=== PATIENT | female | born 1945 | race Caucasian/White ===

== ENCOUNTER 2021-03-31 18:32 | Inpatient (IN) ==
[2021-03-31] MEDS ORDERED: 0.9 % Sodium Chloride 1,000 ML IVC ONE (18:37)
[2021-03-31] MEDS ORDERED: Ondansetron 4 MG/2 ML VIAL IVP ONE (18:38)
[2021-03-31] MEDS ORDERED: *HR* FentaNYL (PF) 100 MCG/2 ML VIAL IVP ONE (18:46)
[2021-03-31] MEDS ORDERED: Albumin 25% 25gram/100mL 25 GM/100 ML IV.SOLN IVPB ONE (18:47)
[2021-03-31] MEDS ORDERED: 0.9 % Sodium Chloride 500 ML IVC ONE ×2 (18:47→19:48)
[2021-03-31 19:06] LABS: Basophils % 0.2 %; Eosinophils % 0.4 %; Immature Granulocytes % 0.8 % (0-4); Lymphocytes # 1.3 K/mcL (0.6-4.6); Lymphocytes % 15.2 %; Mean Corpuscular HGB Conc 33.3 g/dL (31.6-35.5); Mean Corpuscular Hemoglobin 28.8 pg (28.0-33.3); Mean Corpuscular Volume 86.4 fL (83.0-100.0); Mean Platelet Volume 9.4 fL (9.4-12.4); Monocytes # 0.5 K/mcL (0.0-1.3); Monocytes % 6.4 %; Neutrophils # 6.5 K/mcL (1.6-8.9); Platelet Count 347 K/mcL (140-400); Red Cell Distribution Width 18.4 % (11.5-14.5); White Blood Count 8.4 K/mcL (4.3-11.1)
[2021-03-31] MEDS ORDERED: Isovue-370 500 ML BOTTLE IVP ONE (19:09)
[2021-03-31 19:29] LABS: Albumin 3.7 g/dL (3.5-5.7); Albumin/Globulin Ratio 1.1 (1.1-2.2); Bilirubin,Direct 0.7 mg/dL (0.0-0.2); Bilirubin,Indirect 1.4 mg/dL (0.0-1.0); Bilirubin,Total 2.1 mg/dL (0.3-1.0); Calcium 10.7 mg/dL (8.6-10.3); Globulin 3.3 g/dL (2.4-3.5); Potassium 3.9 mEq/L (3.5-5.1); Troponin I 0.03 ng/mL (< 0.04)
[2021-03-31] MEDS: 0.9 % Sodium Chloride 1,000 ML IVC SCH (20:31)
[2021-03-31 20:57] LABS: Bacteria,Urine Few per hpf (None-Few); Bilirubin,Urine Small (Negative); Blood,Urine Negative (Negative); Clarity,Urine Turbid (Clear); Color,Urine Dark-Yellow (Yellow); Glucose,Urine (UA) Normal (Normal); Hyaline Casts,Urine Few per lpf (None Seen); Ketones,Urine Negative (Negative); Leukocyte Esterase,Urine Negative (Negative); Mucus,Urine Few per lpf (None-Few); Nitrite,Urine Negative (Negative); Protein,Urine 50 mg/dL (Neg-Trace); RBC,Urine 0-3 per hpf (0-3); Specific Gravity,Urine 1.022 (1.010-1.025); Squamous Epithelial Cell,Urine Few per hpf (None-Few)
[2021-03-31] MEDS ORDERED: cefTRIAXone 1,000 MG in Water for inj. (sterile) 10 ML IVP ONE (22:09)
[2021-03-31 22:58] LABS: INR 2.3; Prothrombin Time 26.3 Seconds (9.4-12.1)
[2021-03-31 23:01] LABS: Activated Partial Thrombo Time 30.8 Seconds (26.0-36.0)
[2021-04-01] MEDS ORDERED: Ondansetron 4 MG/2 ML VIAL IVP PRN ×2 (00:09→00:17)
[2021-04-01] MEDS ORDERED: Naloxone 0.4 MG/ML INJ IVP PRN (00:17)
[2021-04-01] MEDS ORDERED: *HR* Metoprolol 5 MG/5 ML VIAL IVP PRN (01:03)
[2021-04-01 05:06] LABS: Hematocrit 45.4 % (35.3-44.9); Hemoglobin 14.6 g/dL (11.5-15.4); Mean Corpuscular HGB Conc 32.2 g/dL (31.6-35.5); Mean Corpuscular Hemoglobin 29.4 pg (28.0-33.3); Mean Corpuscular Volume 91.5 fL (83.0-100.0); Mean Platelet Volume 9.5 fL (9.4-12.4); Platelet Count 234 K/mcL (140-400); Red Blood Count 4.96 M/mcL (3.82-4.97)
[2021-04-01 05:14] LABS: INR 2.3; Prothrombin Time 26.1 Seconds (9.4-12.1)
[2021-04-01 05:17] LABS: Activated Partial Thrombo Time 29.6 Seconds (26.0-36.0)
[2021-04-01 05:22] LABS: Albumin 3.2 g/dL (3.5-5.7); Albumin/Globulin Ratio 1.2 (1.1-2.2); Bilirubin,Total 1.4 mg/dL (0.3-1.0); Calcium 9.2 mg/dL (8.6-10.3); Globulin 2.6 g/dL (2.4-3.5); Magnesium 1.9 mg/dL (1.6-2.6); Potassium 3.6 mEq/L (3.5-5.1); Total Protein 5.8 g/dL (6.4-8.9)
[2021-04-01] MEDS: 0.9 % Sodium Chloride 1,000 ML IVC SCH (06:57)
[2021-04-01] MEDS: Piperacillin/Tazobactam 3.375 GM in 0.9 % Sodium Chloride Mini Bag 100 ML IVPB SCH ×2 (08:17→20:56)
[2021-04-01] MEDS ORDERED: Albumin 25% 25gram/100mL 25 GM/100 ML IV.SOLN IVPB ONE (12:39)
[2021-04-01] MEDS ORDERED: Perflutren Lipid Microsphere 1.3 ML in 0.9 % Sodium Chloride 8.7 ML IVP PRN (13:28)
[2021-04-01 18:12] LABS: Bilirubin,Urine Negative (Negative); Blood,Urine Moderate (Negative); Clarity,Urine Turbid (Clear); Color,Urine Yellow (Yellow); Glucose,Urine (UA) Normal (Normal); Hyaline Casts,Urine Many per lpf (None Seen); Ketones,Urine Negative (Negative); Leukocyte Esterase,Urine Moderate (Negative); Mucus,Urine Few per lpf (None-Few); Nitrite,Urine Negative (Negative); PH,Urine 5.5 pH Units (5.0-8.0); Protein,Urine 30 mg/dL (Neg-Trace); RBC,Urine 30-50 per hpf (0-3); Specific Gravity,Urine 1.023 (1.010-1.025); Squamous Epithelial Cell,Urine Few per hpf (None-Few); Uric Acid Crystals,Urine Present per hpf; Urobilinogen,Urine Normal (Normal); WBC,Urine 15-30 per hpf (0-3)
[2021-04-01 18:32] LABS: Creatinine,Urine 229 mg/dL; Sodium, Urine < 10.0 mEq/L
[2021-04-01] MEDS ORDERED: Albumin 25% 25gram/100mL 25 GM/100 ML IV.SOLN IVPB SCH (21:00)
[2021-04-02 05:30] LABS: Basophils % 0.4 %; Eosinophils # 0.1 K/mcL (0.0-0.6); Eosinophils % 1.2 %; Hematocrit 43.4 % (35.3-44.9); Hemoglobin 14.1 g/dL (11.5-15.4); Immature Granulocytes % 0.4 % (0-4); Lymphocytes # 0.9 K/mcL (0.6-4.6); Lymphocytes % 13.3 %; Mean Corpuscular HGB Conc 32.5 g/dL (31.6-35.5); Mean Corpuscular Hemoglobin 29.1 pg (28.0-33.3); Mean Corpuscular Volume 89.7 fL (83.0-100.0); Mean Platelet Volume 9.1 fL (9.4-12.4); Monocytes # 0.7 K/mcL (0.0-1.3); Monocytes % 10.3 %; Platelet Count 223 K/mcL (140-400); Red Blood Count 4.84 M/mcL (3.82-4.97); Red Cell Distribution Width 18.5 % (11.5-14.5); Segmented Neutrophils % 74.4 %; White Blood Count 6.7 K/mcL (4.3-11.1)
[2021-04-02] MEDS: Albumin 25% 25gram/100mL 25 GM/100 ML IV.SOLN IVPB SCH ×3 (05:35→21:37)
[2021-04-02 05:42] LABS: INR 1.7; Prothrombin Time 19.1 Seconds (9.4-12.1)
[2021-04-02 05:45] LABS: Albumin 4.1 g/dL (3.5-5.7); Albumin/Globulin Ratio 1.6 (1.1-2.2); Bilirubin,Direct 0.8 mg/dL (0.0-0.2); Bilirubin,Indirect 1.3 mg/dL (0.0-1.0); Bilirubin,Total 2.1 mg/dL (0.3-1.0); Calcium 10.1 mg/dL (8.6-10.3); Globulin 2.5 g/dL (2.4-3.5); Magnesium 2.2 mg/dL (1.6-2.6); Potassium 3.3 mEq/L (3.5-5.1); Total Protein 6.6 g/dL (6.4-8.9)
[2021-04-02 05:46] LABS: Uric Acid 13.2 mg/dL (2.3-7.6)
[2021-04-02 06:41] LABS: Hepatitis B Surface Antigen Nonreactive (Nonreactive)
[2021-04-02 07:09] LABS: Hepatitis C Virus Antibody Nonreactive (Nonreactive)
[2021-04-02 07:10] LABS: Hepatitis C Virus Antibody Nonreactive (Nonreactive)
[2021-04-02 07:11] LABS: Hepatitis A Antibody IgM Nonreactive (Nonreactive); Hepatitis B Core IgM Nonreactive (Nonreactive)
[2021-04-02] MEDS: Cholecalciferol (D-3) 1,000 UNIT (25MCG) TABLET PO SCH (09:42)
[2021-04-02] MEDS: Piperacillin/Tazobactam 3.375 GM in 0.9 % Sodium Chloride Mini Bag 100 ML IVPB SCH (09:42)
[2021-04-02] MEDS ORDERED: Piperacillin/Tazobactam 3.375 GM in 0.9 % Sodium Chloride Mini Bag 100 ML IVPB SCH (18:00)
[2021-04-03] MEDS: Albumin 25% 25gram/100mL 25 GM/100 ML IV.SOLN IVPB SCH ×2 (05:01→13:56)
[2021-04-03] MEDS ORDERED: Piperacillin/Tazobactam 3.375 GM in 0.9 % Sodium Chloride Mini Bag 100 ML IVPB SCH (06:00)
[2021-04-03 06:12] LABS: Basophils % 0.5 %; Eosinophils # 0.2 K/mcL (0.0-0.6); Eosinophils % 2.9 %; Hematocrit 40.7 % (35.3-44.9); Hemoglobin 13.9 g/dL (11.5-15.4); Immature Granulocytes % 0.7 % (0-4); Lymphocytes # 0.7 K/mcL (0.6-4.6); Lymphocytes % 11.9 %; Mean Corpuscular HGB Conc 34.2 g/dL (31.6-35.5); Mean Corpuscular Hemoglobin 29.9 pg (28.0-33.3); Mean Corpuscular Volume 87.5 fL (83.0-100.0); Mean Platelet Volume 9.1 fL (9.4-12.4); Monocytes # 0.7 K/mcL (0.0-1.3); Monocytes % 11.2 %; Neutrophils # 4.3 K/mcL (1.6-8.9); Platelet Count 196 K/mcL (140-400); Red Blood Count 4.65 M/mcL (3.82-4.97); Red Cell Distribution Width 17.7 % (11.5-14.5); Segmented Neutrophils % 72.8 %
[2021-04-03 06:18] LABS: INR 1.5; Prothrombin Time 16.9 Seconds (9.4-12.1)
[2021-04-03 06:35] LABS: Albumin/Globulin Ratio 2.4 (1.1-2.2); Bilirubin,Indirect 1.3 mg/dL (0.0-1.0); Bilirubin,Total 2.3 mg/dL (0.3-1.0); Calcium 9.7 mg/dL (8.6-10.3); Globulin 1.7 g/dL (2.4-3.5); Magnesium 1.8 mg/dL (1.6-2.6); Potassium 3.2 mEq/L (3.5-5.1); Total Protein 5.7 g/dL (6.4-8.9)
[2021-04-03] MEDS: Cholecalciferol (D-3) 1,000 UNIT (25MCG) TABLET PO SCH (08:28)
[2021-04-03 12:54] VITALS: BP 99/66
[2021-04-04 18:19] LABS: Appearance of Body Fluid Cloudy (Clear); Source of Body Fluid ascites- add on flui
[2021-04-04 18:20] LABS: Volume of Body Fluid 60 mL
[2021-04-05 04:56] LABS: Fluid Source for Albumin PERITONEAL FL.
== END 2021-04-03 16:11 | disposition home or self-care (01) | DRG 432 ==
LOC: 3ANU 18:32 → EMEROOARM 18:32 → SUATTDRO 22:13 → 3ANU 22:51
PROVIDERS: ADMIT Student in an Organized Health Care Education/Training Program; ATTEND Pharmacist

== ENCOUNTER 2021-04-12 11:22 | Inpatient (IN) ==
[2021-04-12 12:30] LABS: Basophils % 0.3 %; Eosinophils % 0.3 %; Hematocrit 49.2 % (35.3-44.9); Immature Granulocytes % 0.7 % (0-4); Lymphocytes # 1.2 K/mcL (0.6-4.6); Lymphocytes % 11.1 %; Mean Corpuscular HGB Conc 34.6 g/dL (31.6-35.5); Mean Corpuscular Volume 86.8 fL (83.0-100.0); Mean Platelet Volume 9.6 fL (9.4-12.4); Monocytes # 0.7 K/mcL (0.0-1.3); Monocytes % 6.3 %; Neutrophils # 8.4 K/mcL (1.6-8.9); Platelet Count 362 K/mcL (140-400); Red Blood Count 5.67 M/mcL (3.82-4.97); Red Cell Distribution Width 19.1 % (11.5-14.5); Segmented Neutrophils % 81.3 %; White Blood Count 10.3 K/mcL (4.3-11.1)
[2021-04-12 12:56] LABS: INR 1.4; Prothrombin Time 15.6 Seconds (9.4-12.1)
[2021-04-12 13:08] LABS: VBG Ionized Calcium 1.19 mmol/L (1.15-1.35)
[2021-04-12 13:08] LABS: Bacteria,Urine Few per hpf (None-Few); Bilirubin,Urine Small (Negative); Blood,Urine Negative (Negative); Clarity,Urine Turbid (Clear); Color,Urine Yellow (Yellow); Glucose,Urine (UA) Normal (Normal); Hyaline Casts,Urine Many per lpf (None Seen); Ketones,Urine Trace mg/dL (Negative); Leukocyte Esterase,Urine Negative (Negative); Mucus,Urine Few per lpf (None-Few); Nitrite,Urine Negative (Negative); PH,Urine 5.5 pH Units (5.0-8.0); Protein,Urine 50 mg/dL (Neg-Trace); RBC,Urine 0-3 per hpf (0-3); Specific Gravity,Urine 1.025 (1.010-1.025); Squamous Epithelial Cell,Urine Few per hpf (None-Few)
[2021-04-12 13:11] LABS: Thyroid Stimulating Hormone 10.381 mcIU/mL (0.340-5.600); Troponin I 0.13 ng/mL (< 0.04)
[2021-04-12] MEDS ORDERED: 0.9 % Sodium Chloride 500 ML IVC ONE (13:13)
[2021-04-12] MEDS ORDERED: Aspirin 81 MG TAB.CHEW PO ONE (13:15)
[2021-04-12 13:28] LABS: Albumin 3.6 g/dL (3.5-5.7); Albumin/Globulin Ratio 1.4 (1.1-2.2); Bilirubin,Direct 0.7 mg/dL (0.0-0.2); Bilirubin,Total 1.7 mg/dL (0.3-1.0); Globulin 2.6 g/dL (2.4-3.5); Magnesium 2.2 mg/dL (1.6-2.6); Potassium 3.6 mEq/L (3.5-5.1); Total Protein 6.2 g/dL (6.4-8.9)
[2021-04-12] MEDS ORDERED: Morphine Sulfate 2 MG/ML SYRINGE IVP STA (13:53)
[2021-04-12] MEDS ORDERED: Aspirin 81 MG TAB.CHEW ONE (14:00)
[2021-04-12] MEDS ORDERED: Ondansetron 4 MG/2 ML VIAL IVP STA (14:07)
[2021-04-12] MEDS ORDERED: Naloxone 0.4 MG/ML INJ IVP PRN (16:04)
[2021-04-12] MEDS ORDERED: Ondansetron 4 MG/2 ML VIAL IVP PRN (16:04)
[2021-04-12] MEDS ORDERED: Albumin 25% 25gram/100mL 25 GM/100 ML IV.SOLN IVPB ONE (16:09)
[2021-04-13 05:21] LABS: Basophils % 0.2 %; Eosinophils # 0.1 K/mcL (0.0-0.6); Eosinophils % 0.5 %; Hematocrit 45.2 % (35.3-44.9); Immature Granulocytes % 0.4 % (0-4); Lymphocytes # 1.4 K/mcL (0.6-4.6); Lymphocytes % 14.1 %; Mean Corpuscular HGB Conc 33.2 g/dL (31.6-35.5); Mean Corpuscular Hemoglobin 29.2 pg (28.0-33.3); Mean Corpuscular Volume 87.9 fL (83.0-100.0); Mean Platelet Volume 9.6 fL (9.4-12.4); Monocytes # 0.8 K/mcL (0.0-1.3); Monocytes % 8.7 %; Neutrophils # 7.4 K/mcL (1.6-8.9); Platelet Count 320 K/mcL (140-400); Red Blood Count 5.14 M/mcL (3.82-4.97); Red Cell Distribution Width 18.4 % (11.5-14.5); Segmented Neutrophils % 76.1 %; White Blood Count 9.7 K/mcL (4.3-11.1)
[2021-04-13 05:37] LABS: Calcium 10.5 mg/dL (8.6-10.3); Magnesium 2.2 mg/dL (1.6-2.6); Potassium 3.4 mEq/L (3.5-5.1)
[2021-04-13] MEDS: Megestrol Acetate 400 MG/10 ML UDC PO SCH (07:19)
[2021-04-13] MEDS: Cholecalciferol (D-3) 1,000 UNIT (25MCG) TABLET PO SCH (07:20)
[2021-04-13] MEDS: Albumin 25% 25gram/100mL 25 GM/100 ML IV.SOLN IVPB SCH ×2 (16:19→23:45)
[2021-04-13 16:20] LABS: Appearance of Peritoneal Fl HAZY (Clear); RBC,Peritoneal Fluid < 2000 RBC/mcL
[2021-04-14 06:48] LABS: Hematocrit 41.9 % (35.3-44.9); Hemoglobin 14.2 g/dL (11.5-15.4); Mean Corpuscular HGB Conc 33.9 g/dL (31.6-35.5); Mean Corpuscular Hemoglobin 29.5 pg (28.0-33.3); Mean Corpuscular Volume 86.9 fL (83.0-100.0); Mean Platelet Volume 9.3 fL (9.4-12.4); Platelet Count 273 K/mcL (140-400); Red Blood Count 4.82 M/mcL (3.82-4.97); Red Cell Distribution Width 17.5 % (11.5-14.5); White Blood Count 9.4 K/mcL (4.3-11.1)
[2021-04-14 07:10] LABS: Calcium 10.2 mg/dL (8.6-10.3); Potassium 3.2 mEq/L (3.5-5.1)
[2021-04-14] MEDS: Cholecalciferol (D-3) 1,000 UNIT (25MCG) TABLET PO SCH (09:07)
[2021-04-14] MEDS: Megestrol Acetate 400 MG/10 ML UDC PO SCH (09:07)
[2021-04-14] MEDS: Albumin 25% 25gram/100mL 25 GM/100 ML IV.SOLN IVPB SCH (09:08)
[2021-04-14] MEDS ORDERED: Lactulose Oral Soln 20 GM/30 ML UDC PO PRN (11:52)
[2021-04-14] MEDS: Albumin 25% 25gram/100mL 25 GM/100 ML IV.SOLN IVC SCH ×2 (12:36→16:30)
[2021-04-14] MEDS: Apixaban 5 MG TABLET PO SCH (20:12)
[2021-04-15 03:30] LABS: Hematocrit 39.5 % (35.3-44.9); Hemoglobin 13.6 g/dL (11.5-15.4); Mean Corpuscular HGB Conc 34.4 g/dL (31.6-35.5); Mean Corpuscular Hemoglobin 29.6 pg (28.0-33.3); Mean Corpuscular Volume 85.9 fL (83.0-100.0); Mean Platelet Volume 9.3 fL (9.4-12.4); Platelet Count 240 K/mcL (140-400); Red Cell Distribution Width 17.3 % (11.5-14.5)
[2021-04-15 03:56] LABS: Calcium 8.5 mg/dL (8.6-10.3)
[2021-04-15] MEDS: Megestrol Acetate 400 MG/10 ML UDC PO SCH (07:46)
[2021-04-15] MEDS: Cholecalciferol (D-3) 1,000 UNIT (25MCG) TABLET PO SCH (07:46)
[2021-04-15] MEDS: Apixaban 5 MG TABLET PO SCH (07:46)
[2021-04-15] MEDS ORDERED: Potassium Chloride Elixir 20 MEQ/15 ML UDC PO SCH (09:00)
[2021-04-15 10:58] VITALS: BP 105/67
[2021-04-15] MEDS ORDERED: Acetaminophen 325 MG TABLET PO ONE (11:59)
[2021-04-15] MEDS ORDERED: Albumin 25% 25gram/100mL 25 GM/100 ML IV.SOLN IVPB SCH ×2 (12:03→16:00)
[2021-04-16 13:46] LABS: Fluid Source for Albumin PERITONEAL
== END 2021-04-15 14:50 | disposition home or self-care (01) | DRG 433 ==
LOC: 2ANU 11:22 → EMEROOARM 11:22 → SUATTDRO 15:58 → 2ANU 16:50
PROVIDERS: ADMIT Internal Medicine; ATTEND Internal Medicine